=== PATIENT | male | born 1995 | race Caucasian/White ===

== ENCOUNTER 2020-07-16 13:26 | Emergency (ER) | payer OTHER ==
[~2020-07-16] VITALS: Ht 182.9 cm; Wt 88.6 kg
--- NOTE | 2020-07-16 14:07 | REP ---
INDICATION: TRAUMA. COMPARISON: None. TECHNIQUE: CT BRAIN PERFORMED IN THE AXIAL PLANE. CORONAL RECONSTRUCTION IMAGES ARE PERFORMED. FINDINGS: THE VENTRICLES ARE NORMAL IN SIZE AND POSITION. THERE IS NO MIDLINE SHIFT OR MASS EFFECT. THOMAS-WHITE DIFFERENTIATION IS WELL MAINTAINED. THERE IS NO ACUTE INTRACRANIAL HEMORRHAGE OR EXTRA-AXIAL FLUID COLLECTION. BONE WINDOW EXAMINATION IS UNREMARKABLE. VISUALIZED MASTOID AIR CELLS AND PARANASAL SINUSES ARE CLEAR. IMPRESSION: NEGATIVE NONCONTRAST CT BRAIN. <Electronically signed by Pablo Thomas > 07/16/20 [id number]
--- NOTE | 2020-07-16 14:11 | REP ---
INDICATION: TRAUMA. COMPARISON: None. TECHNIQUE: CT cervical spine performed in the axial plane, with sagittal and coronal reconstruction images performed. FINDINGS: There is no acute compression fracture or malalignment. There is no prevertebral soft tissue swelling. Disc spaces are well preserved. There is normal cervical lordosis. There is no abnormal density in the spinal canal. IMPRESSION: No evidence of acute fracture or dislocation. <Electronically signed by Pablo Thomas > 07/16/20 [id number]
[2020-07-16 15:37] VITALS: BP 120/74
== END 2020-07-16 16:35 | disposition home or self-care (01) ==
LOC: M ED 13:26
DX: F07.81 Postconcussional syndrome (principal); H61.23 Impacted cerumen, bilateral

== ENCOUNTER 2020-07-17 09:49 | Emergency (ER) | payer OTHER ==
[~2020-07-17] VITALS: Ht 182.9 cm; Wt 96.0 kg
[2020-07-17 12:42] VITALS: BP 148/63
== END 2020-07-17 12:55 | disposition home or self-care (01) ==
LOC: M ED 09:49
DX: S06.0X0A Concussion without loss of consciousness, initial encounter (principal); V00.311A Fall from snowboard, initial encounter; Y92.830 Public park as the place of occurrence of the external cause; Y93.23 Activity, snow (alpine) (downhill) skiing, snowboarding, sledding, tobogganing and snow tubing

== ENCOUNTER 2021-09-16 21:57 | Emergency (ER) | payer OTHER ==
[~2021-09-16] VITALS: Ht 180.3 cm; Wt 90.0 kg
[2021-09-16 21:57] VITALS: BP 106/61
== END 2021-09-16 23:23 | disposition left against medical advice (07) ==
LOC: M ED 21:57
DX: Z53.21 Procedure and treatment not carried out due to patient leaving prior to being seen by health care provider (principal)